=== PATIENT | male | born 1995 | race African-American/Black ===

== ENCOUNTER 2023-08-08 08:23 | Emergency (ER) | payer BC, SELFPAY ==
[2023-08-08 08:31] VITALS: BP 110/58; PULSE 66; RESP 16; TEMP 37.2; O2SAT 100; BMI 21.3
--- NOTE | 2023-08-08 09:17 | ED_ITS ---
HPI - Seizure General Chief Complaint: Seizure Stated Complaint: seizure Time Seen by Provider: 08/08/23 08:46 Source: patient and family Mode of arrival: ambulatory Limitations: no limitations History of Present Illness HPI Narrative: Patient is a 28-year-old male with past medical history of seizure disorder presenting to emergency department for evaluation after witnessed seizure lasting approximately 4-5 minutes by his girlfriend, reported tonic-clonic seizure, with bladder incontinence and postictal state. Denies any drug or alcohol usage. Denies any recent ill symptoms. Denies any head injury. Mother and girlfriend are present at bedside who reports that he stopped taking his medication for a while ago? reportedly because it was not working and he was still continuing to have seizures. Family inpatient affirms that his last seizure was approximately 3 months ago. Per patient's mother he follows with neurologist Dr. Sinclair in [place], and has a specialist in [place] who he last saw approximately 1 year ago but does not recall the name. Related Data Previous Rx's Medication Instructions Recorded levetiracetam 500 mg tablet 500 mg PO BID #30 tabs 08/08/23 (Keppra) Allergies Allergy/AdvReac Type Severity Reaction Status Date / Time No Known Allergies Allergy Verified 08/08/23 08:31 Review of Systems 2 Review of Systems: Yes all other systems are reviewed and are negative [facility] Past Medical History Attestation statement: The following information was validated with the patient. Source: old records reviewed Social History Social History Advance Directives: No Advance Directives Information Provided: No Physical Exam 2 Vital Signs: Vital Signs: Last Vital Signs Temp 99 F 08/08/23 08:31 Pulse 70 08/08/23 13:25 Resp 10 L 08/08/23 13:25 BP 100/85 08/08/23 13:25 Pulse Ox 98 08/08/23 13:25 O2 Del Method Room Air 08/08/23 08:31 BMI result Body Mass Index 21.3 Appearance: Alert.?Oriented to person, place and time. No acute distress.?Normal affect. Eyes: Pupils equal, round and reactive to light.? ENT: Pharynx normal.?? Neck: Normal inspection.? Neck supple.?? CVS: Heart sounds normal. Normal heart rate and rhythm.? Pulses normal.?? Respiratory: No respiratory distress.? Lung sounds clear to auscultation bilaterally?? Abdomen: Soft and non-tender. Normoactive bowel sounds. Skin: Skin warm and dry.? Normal skin color.? Normal skin turgor.?? Extremities: No lower extremity edema.? No calf ttp? Neuro: Moves all extremities spontaneously. Sensation intact bilaterally. CN II- XII intact. No focal neuro deficits. Ambulates with normal steady gait. Course Reevaluation(s) Reevaluation #1: Advised by nursing staff the patient is requesting anxiety medication. Upon presenting to his room he is noted to be asleep. Arouses to verbal stimuli asking to be left alone so that he can sleep. At this time do not feel that anxiolytic would be most appropriate treatment. Feel it is most likely that seizure activity occurred today due to his medication noncompliance. Given he has been off of his medications for at least a few months you start on Keppra 500 mg b.i.d. and advised to follow-up outpatient with his neurologist. When asked patient adamantly denies any drug or alcohol usage, discussed urine testing positive for fentanyl he still continues to deny any drug usage. He did not receive any medications in the emergency department that would result in this testing. At this time he does admit that it has been longer than 1 week since taking his seizure medications. He in fact does not recall the last time he did take it. He is ambulatory with a steady gait. Speaking clear full sentences. Continues to be without any focal neurological deficits. Feel that he is stable for discharge Time: 12:30 Medications Administered Discontinued Medications Generic Name Dose Route Start Last Admin Trade Name Kendra PRN Reason Stop Dose Admin Acetaminophen 975 mg 08/08/23 09:14 08/08/23 10:07 Acetaminophen 325 Mg Tablet PO 08/08/23 09:15 975 mg ONCE ONE Administration Levetiracetam 1,000 mg in 100 mls @ 400 mls/hr 08/08/23 09:14 08/08/23 10:49 Keppra IV 08/08/23 09:28 Infused ONCE ONE Infusion Sodium Chloride 1,000 mls @ 999 mls/hr 08/08/23 09:15 08/08/23 11:15 Ns IV 08/08/23 10:15 Infused .Q1H1M ARIE Infusion Medical Decision Making Medical Decision Making MDM Narrative: Patient is a 28-year-old male past medical history of seizure disorder presenting to emergency department for evaluation after witnessed reported tonic-clonic seizure by his girlfriend lasting approximately 4 minutes with bladder incontinence and postictal state. At the time my examination he appears tired but arouses to verbal stimuli, answers questions appropriately, oriented, and is without any focal neurological deficits. Of note he was previously prescribed lamotrigine and Keppra, has not picked up from pharmacy since January of 2023, he states he stopped taking the medication last week. however mother and girlfriend are at bedside and they stated that he has not taking the medication? a long time?. Suspect seizure secondary to medication noncompliance, plan to obtain labs to exclude infectious etiology, suspect less likely acute intracranial abnormality, would defer head CT at this time. Patient to receive loading dose of Keppra in the emergency department Differential Diagnosis Differential Diagnoses: The differential diagnosis associated with the presentation includes (See narrative above) Lab Data MDM Lab Attestation statement: I reviewed the patient's lab results. 08/08/23 09:35 08/08/23 09:35 Labs: Lab Results 08/08/23 08/08/23 Range/Units 09:35 11:53 WBC 5.3 (4.8-10.8) X10*3/uL RBC 4.07 L (4.60-5.80) X10*6/uL Hgb 12.6 L (14.0-18.0) g/dl Hct 36.9 L (42.0-52.0) % MCV 90.7 (80.0-98.0) fL MCH 31.0 (27.0-33.0) pg MCHC 34.1 (31.0-36.0) g/dl RDW 12.8 (11.0-16.0) % Plt Count 219 (160-400) X10*3/uL MPV 8.5 L (9.4-12.4) fL Immature Gran % (Auto) 0.4 (0.0-0.4) % Neut % (Auto) 74.1 H (45-73) % Lymph % (Auto) 17.7 L (20-40) % [place] % (Auto) 6.6 (2-11) % Eos % (Auto) 0.8 (0-4) % Baso % (Auto) 0.4 (0-2) % Lymph # (Auto) 0.9 L (1.2-4.9) X10*3/uL [place] # (Auto) 0.4 (0.1-1.2) X10*3/uL Eos # (Auto) 0.0 (0.0-0.4) X10*3/uL Baso # (Auto) 0.0 (0.0-0.2) X10*3/uL Abs Immat Gran (auto) 0.02 (0.00-0.03) X10*3/uL Absolute Neuts (auto) 4.0 (2.0-8.3) x10*3/uL Absolute Nucleated RBC 0.000 (0.0-0.012) X10*3/uL Nucleated RBC % (auto) 0.0 (0.0-0.2) /100WBC Sodium 139 (135-145) mmol/L Potassium 3.8 (3.3-5.1) mmol/L Chloride 105 (96-108) mmol/L Carbon Dioxide 27 (22-29) mmol/L Anion Gap 11 L (12-20) BUN 16 (9-16) mg/dL Creatinine 0.81 (0.5-1.4) mg/dL Estim Creat Clear Calc 124.1 Estimated GFR > 60 Random Glucose 77 (60-115) mg/dL Calcium 9.5 (8.4-10.2) mg/dL Total Bilirubin 1.4 H (0.0-1.0) mg/dL AST 18 (5-37) U/L ALT 18 (0-40) U/L Alkaline Phosphatase 64 (39-117) U/L Total Protein 6.7 (6.5-8.0) g/dL Albumin 4.5 (3.5-5.0) g/dL Urine Color Yellow Urine Appearance Clear Urine pH 6.5 (5.0-9.0) Ur Specific [place] 1.010 (1.005-1.025) Urine Protein Negative (Neg-Trace) mg/dL Urine Glucose (UA) Negative (Negative) mg/dL Urine Ketones Trace (Negative) mg/dL Urine Blood Negative (Negative) Urine Nitrite Negative (Negative) Ur Leukocyte Esterase Negative (Negative) Urine Opiates Screen Not Detected (Not Detect) Urine Fentanyl Screen POSITIVE H (Not Detect) Ur Barbiturates Screen Not Detected (Not Detect) Ur Phencyclidine Scrn Not Detected (Not Detect) Ur Amphetamines Screen Not Detected (Not Detect) U Benzodiazepines Scrn Not Detected (Not Detect) Urine Cocaine Screen Not Detected (Not Detect) U Marijuana (THC) Screen POSITIVE H (Not Detect) Ethyl Alcohol < 10 mg/dL Influenza Type A (PCR) NEGATIVE (Negative) Influenza Type B (PCR) NEGATIVE (Negative) RSV RNA Qual (PCR) NEGATIVE (Negative) SARS-CoV-2 RNA (RT-PCR) NEGATIVE (Negative) Independent Historian Clinical information obtained from an independent historian. History obtained from or confirmed by: Spouse (As per narrative above) and Parent (As per narrative above) Critical Care Time Critical Care Time Critical Care Time: Yes Total Critical Care Time: 45 Attestation: I personally attest to this critical care time spent taking care of the patient exclusive of all other billable procedures was approximately 45 minutes including initial evaluation of patient, ordering tests, medication management, documentation, re-evaluation. Discharge Plan Discharge Clinical Impression: Seizure disorder Patient Disposition: Home, Self-Care Instructions: Recurrent Seizures in Adults (ED) Additional Instructions: It is important that you take your seizure medications as prescribed by your doctor. Please contact your neurologist to arrange for a follow-up visit. Since it has been quite some time since you have taken your medications I have sent a prescription for Keppra 500 mg take twice daily to your pharmacy. Prescriptions: New levetiracetam [Keppra] 500 mg tablet 500 mg PO BID Qty: 30 0RF Referrals: Physician,Unknown J [Primary Care Provider] - Interventions: ED Discharge Assessment Last Done: 08/08/23 13:23 Discharge Date/Time: 08/08/23 13:24
[2023-08-08 09:40] LABS: MANUAL DIFF FLAG NO
[2023-08-08 09:41] LABS: Basophils Percent Auto 0.4 % (0-2); Eosinophils Percent Auto 0.8 % (0-4); Hematocrit 36.9 % (42.0-52.0); Hemoglobin 12.6 g/dl (14.0-18.0); Imm Gran Abs Auto 0.02 X10*3/uL (0.00-0.03); Imm Gran Pct Auto 0.4 % (0.0-0.4); Lymphocytes Absolute Auto 0.9 X10*3/uL (1.2-4.9); Lymphocytes Percent Auto 17.7 % (20-40); Mean Corpuscular HGB Conc 34.1 g/dl (31.0-36.0); Mean Corpuscular Volume 90.7 fL (80.0-98.0); Mean Platelet Volume 8.5 fL (9.4-12.4); Monocytes Absolute Auto 0.4 X10*3/uL (0.1-1.2); Monocytes Percent Auto 6.6 % (2-11); Neutrophils Percent Auto 74.1 % (45-73); Platelet Count 219 X10*3/uL (160-400); Red Blood Count 4.07 X10*6/uL (4.60-5.80); Red Cell Distribution Width 12.8 % (11.0-16.0); White Blood Count 5.3 X10*3/uL (4.8-10.8)
[2023-08-08] MEDS: 0.9 % Sodium Chloride 1,000 ML 999 ML IV (10:01)
[2023-08-08 10:06] LABS: Alanine Aminotransferase 18 U/L (0-40); Albumin Level 4.5 g/dL (3.5-5.0); Alkaline Phosphatase 64 U/L (39-117); Anion Gap 11 (12-20); Aspartate Amino Transferase 18 U/L (5-37); Bilirubin Total 1.4 mg/dL (0.0-1.0); Blood Urea Nitrogen 16 mg/dL (9-16); Calcium 9.5 mg/dL (8.4-10.2); Carbon Dioxide 27 mmol/L (22-29); Chloride 105 mmol/L (96-108); Creatinine Clr Calc Pharmacy 124.1; Estimated Glomerular Filt Rate > 60; Glucose Random 77 mg/dL (60-115); Potassium 3.8 mmol/L (3.3-5.1); Sodium 139 mmol/L (135-145); Total Protein 6.7 g/dL (6.5-8.0)
[2023-08-08] MEDS: Acetaminophen 325 MG TABLET 975 MG PO (10:07)
[2023-08-08] MEDS: levETIRAcetam in NaCl (iso-os) 1,000 MG/100 ML PIGGYBACK 400 MG IV (10:07)
[2023-08-08 10:21] LABS: Ethanol < 10 mg/dL
--- NOTE | 2023-08-08 10:49 | PC.NURSE ---
20g iv inserted LAC, fluids and meds given as documented. pt resting quietly, no apparent distress. Mother and girlfriend at his bedside.
[2023-08-08 10:52] LABS: Influenza A PCR NEGATIVE (Negative); Influenza B PCR NEGATIVE (Negative); Resp Syncy Virus RNA Qual PCR NEGATIVE (Negative); SARS COV2 PCR INHOUSE NEGATIVE (Negative)
[2023-08-08 12:01] LABS: Appearance Urine Clear; Color Urine Yellow; Glucose Urine UA Negative (Negative); Leukocyte Esterase Urine Negative (Negative); Nitrite Urine Negative (Negative); PH 6.5 (5.0-9.0); Urine Blood Negative (Negative); Urine Ketones Trace mg/dL (Negative); Urine Protein Negative (Neg-Trace)
[2023-08-08 12:12] LABS: Amphetamine Screen Urine Not Detected (Not Detect); Barbiturates, Urine Not Detected (Not Detect); Benzodiazepines Screen Urine Not Detected (Not Detect); Cannabinoid Screen Urine POSITIVE (Not Detect); Cocaine Screen Urine Not Detected (Not Detect); Fentanyl, urine POSITIVE (Not Detect); Opiate Screen Urine Not Detected (Not Detect); Phencyclidine Screen Urine Not Detected (Not Detect)
[2023-08-08 13:25] VITALS: BP 100/85; PULSE 70; RESP 10; O2SAT 98
== END 2023-08-08 13:24 | disposition home or self-care (01) ==
PROVIDERS: Nurse Practitioner Family; Emergency Provider Student in an Organized Health Care Education/Training Program
DX: G40.909 Epilepsy, unspecified, not intractable, without status epilepticus (principal); Z79.899 Other long term (current) drug therapy; Z11.52 Encounter for screening for COVID-19; Z20.828 Contact with and (suspected) exposure to other viral communicable diseases
CPT/HCPCS: 0241U; 36415; 80053; 80307; 81003; 85025; 96361; 96365; 99284; J1953